=== PATIENT | male | born 1980 | race African-American/Black ===

== ENCOUNTER → 2025-03-26 10:09 | Outpatient (BNVA) | payer SELFPAY | DX: Z02.1 Encounter for pre-employment examination (principal); M54.9 Dorsalgia, unspecified ==

== ENCOUNTER 2025-07-08 11:38 | Emergency (ER) | payer SELFPAY ==
--- NOTE | ~2025-07-08 | XR_ITS ---
EXAMINATION: XR CHEST CLINICAL INFORMATION: fatigue COMPARISON: 03/05/2019. TECHNIQUE: 2 views of the chest were obtained. FINDINGS: The cardiac, hilar, and mediastinal contours are normal. The lungs are clear bilaterally. There is no pneumothorax or pleural effusion. There is no focal osseous or soft tissue abnormality. XR/XR chest 2V IMPRESSION: Normal chest. Electronically signed by: Carlito Salas MD 07/08/2025 12:59 PM MAL[facility]
[2025-07-08 12:15] VITALS: BP 192/100; PULSE 87; RESP 18; TEMP 36.6; O2SAT 96; BMI 31.4
--- NOTE | 2025-07-08 12:15 | ED_ITS ---
HPI - General Adult General Chief complaint: Recheck/Abnormal Lab/Rx Stated complaint: diabetic, high blood sugar. hands/ feet swollen Time Seen by Provider: 07/08/25 13:33 Source: patient and family Mode of arrival: ambulatory Limitations: no limitations History of Present Illness ED Provider: DR. Duncan HPI narrative: This is a 45-year-old male history of HTN, DM on insulin patient take glargine 40 units daily and lispro insulin as a sliding scale, patient presented for multiple complaints. Blood sugar has been running high for the past 2 weeks despite using his medication as instructed. Patient also been having swelling and edema in both hands and Feets. Patient also complaining of intermittent chest pain that is exertional and associated with shortness of breath that happened several times last week while he was at work that had to stop working and rest in order for the pain to go away. Patient admits to smoking cigarettes, marijuana, vape, admit also to recent use of cocaine 3 days ago. patient is unaware of his family history risk for coronary artery disease. Related Data Allergies Allergy/AdvReac Type Severity Reaction Status Date / Time No Known Allergies Allergy Verified 07/08/25 12:17 Review of Systems 2 Review of Systems: All other systems are reviewed and are negative Constitutional: Reports as per HPI and Reports no additional constitutional complaints Eyes: Reports as per HPI and Reports no additional eye complaints Reports system reviewed and no additional complaints, except as documented Cardiovascular: Reports as per HPI and Reports no additional cardiovascular complaints Respiratory: Reports as per HPI and Reports no additional respiratory complaints Gastrointestinal: Reports as per HPI and Reports no additional gastrointestinal complaints Genitourinary: Reports no additional female genitourinary complaints Musculoskeletal: Reports no additional musculoskeletal complaints Skin/Breast: Reports system reviewed and no additional complaints, except as docu Psychiatric: Reports no additional psychiatric complaints Endocrine: Reports no additional endocrine complaints Hematologic/Lymphatic: Reports no additional hematologic/lymphatic complaints Allergic/Immunologic: Reports no additional allergic/immunologic complaints Reports system reviewed and no additional complaints, except as documented and Reports Abnormal speech present [facility] Social History Social History Advance Directives: Yes Advance Directives Information Provided: No Advance Directives on File: No Physical Exam ED Vital Signs: Vital Signs - 24 hr 07/08/25 12:15 07/08/25 14:11 07/08/25 14:23 Temperature 97.9 F Pulse Rate 87 65 79 Respiratory Rate 18 16 Blood Pressure 192/100 H 165/101 H 161/101 H Pulse Oximetry 96 99 Oxygen Delivery Method Room Air Room Air BMI result Body Mass Index 31.4 Vital signs have been reviewed and appear to be correct. Blood pressure elevated. Heart rate normal. Respiratory rate normal. Temperature normal. Oxygen saturation normal. Appearance: Alert. Oriented X3. No acute distress. Head: Normal external exam. Normocephalic. Atraumatic. No Lez[place] signs noted. No raccoon eyes noted Eyes: PERRLA. EOMI. Conjunctiva and sclera normal. Eyelids normal. ENT: TM's Normal. Pharynx normal. Uvula midline. Moist mucous membranes. No trismus noted. No drooling noted. No muffled voice noted. Neck: Normal inspection. Neck supple. FROM. No adenopathy. Thyroid Normal. No meningeal signs. No neck mass noted. CVS: Normal heart rate and rhythm. Heart sound normal. No murmurs noted. Pulses normal throughout. Respiratory: No respiratory distress. Painless inspiration. Breath sounds normal. No wheezes/rales/rhonchi noted. Chest nontender. No accessory muscle usage noted or decreased air movement noted. Abdomen: Soft and nontender. Bowel sounds normal in all 4 quadrants. No distention noted. No organomegaly noted. No visible injury noted. Back: No CVA tenderness. Full range of motion noted. Skin: Skin warm and dry. Normal skin color. Normal skin turgor. No rashes/lesions/lacerations noted. Extremities: No lower extremity edema. Extremities exhibit normal range of motion. Extremities nontender. Neuro: Oriented X 3. Cranial nerve exam: II-XII are grossly intact No motor deficit. No sensory deficit. Reflexes normal. Course Course Course Narrative: Rapid medical examination performed in triage by Clementine Neely PA-C: Patient is a 45 year old assigned male at presenting to the emergency department with an elevated blood sugar and concerns of swelling / pain to his hands and feet. Patient states over the last 2 weeks his sugars have been elevated and he has been fatigued. Detailed physical exam and review of systems are deferred to the sheriffs detective. Labs ordered. Patient placed back in the waiting room pending room availability and results. Reevaluation(s) Reevaluation #1: chest pain, history of DM, HTN, elevated troponin, history of 1 time use cocaine last week, EKG is concern of T-wave inversion in the inferior lead with slight elevation of troponin. Will admit for concern of elevated troponin and cardiac workup. Patient was given aspirin, labetalol in the ED now has chest pain-free. 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 Ferrara to follow-up as an outpatient. Time: 17:06 Medications Administered Discontinued Medications Generic Name Dose Route Start Last Admin Trade Name Freq PRN Reason Stop Dose Admin Aspirin 325 mg 07/08/25 14:09 07/08/25 14:22 Aspirin 325 Mg Tablet PO 07/08/25 14:10 325 mg ONCE ONE Administration Sodium Chloride 1,000 mls @ 999 mls/hr 07/08/25 13:48 07/08/25 15:10 Ns IV 07/08/25 14:48 Infused .Q1H1M ONE Infusion Insulin Human Regular 10 unit 07/08/25 13:48 07/08/25 14:06 Insulin Regular, Human 100 Unit/Ml 10 Ml Vial IVPUSH 07/08/25 13:49 10 unit ONCE ONE Administration Metoprolol Tartrate 25 mg 07/08/25 14:09 07/08/25 14:23 Metoprolol Tartrate 25 Mg Tablet PO 07/08/25 14:10 25 mg ONCE ONE Administration Protocol Medical Decision Making Differential Diagnosis Differential Diagnoses: The differential diagnosis associated with the presentation includes ( ACS, pneumonia, pneumothorax, pleural effusion, DKA, hyperglycemia, electrolyte derangement, severe anemia) Admission/Observation Consideration of admission/observation: Escalation of care including admission/observation considered Consult Healthcare Provider Management of the patient was discussed with: Hospitalist ( Dr. Calzada) Lab Data MDM Lab Attestation statement: I reviewed the patient's lab results. 07/08/25 12:42 07/08/25 12:42 Labs: Lab Results 07/08/25 07/08/25 07/08/25 Range/Units 11:45 12:42 12:49 WBC 10.7 (4.8-10.8) X10*3/uL RBC 4.60 (4.60-5.80) X10*6/uL Hgb 13.4 L (14.0-18.0) g/dl Hct 38.9 L (42.0-52.0) % MCV 84.6 (80.0-98.0) fL MCH 29.1 (27.0-33.0) pg MCHC 34.4 (31.0-36.0) g/dl RDW 13.0 (11.0-16.0) % Plt Count 403 H (160-400) X10*3/uL MPV 8.6 L (9.4-12.4) fL Immature Gran % (Auto) 0.3 (0.0-0.4) % Neut % (Auto) 59.9 (45-73) % Lymph % (Auto) 30.0 (20-40) % Wayne % (Auto) 7.6 (2-11) % Eos % (Auto) 1.4 (0-4) % Baso % (Auto) 0.8 (0-2) % Lymph # (Auto) 3.2 (1.2-4.9) X10*3/uL Wayne # (Auto) 0.8 (0.1-1.2) X10*3/uL Eos # (Auto) 0.2 (0.0-0.4) X10*3/uL Baso # (Auto) 0.1 (0.0-0.2) X10*3/uL Abs Immat Gran (auto) 0.03 (0.00-0.03) X10*3/uL Absolute Neuts (auto) 6.4 (2.0-8.3) x10*3/uL Absolute Nucleated RBC 0.000 (0.0-0.012) X10*3/uL Nucleated RBC % (auto) 0.0 (0.0-0.2) /100WBC VBG pH 7.42 (7.32-7.43) VBG pCO2 44 mmHg VBG pO2 75 mmHg VBG HCO3 29 H (22-26) mmol/L VBG O2 Saturation 95.0 % VBG Base Excess 4.1 mmol/L Sodium 136 (135-145) mmol/L Potassium 3.7 (3.3-5.1) mmol/L Chloride 100 (96-108) mmol/L Carbon Dioxide 28 (22-29) mmol/L Anion Gap 12 (12-20) BUN 5 L (9-16) mg/dL Creatinine 0.71 (0.5-1.4) mg/dL Estim Creat Clear Calc 175.9 Estimated GFR > 60 POC Glucose 387 H* (60-115) mg/dL Random Glucose 449 H* (60-115) mg/dL Calcium 9.2 (8.4-10.2) mg/dL Magnesium 1.7 (1.6-2.6) mg/dL Total Bilirubin 0.3 (0.0-1.0) mg/dL AST 14 (5-37) U/L ALT 14 (0-40) U/L Alkaline Phosphatase 96 (39-117) U/L Troponin I High Sens 149.4 H* (<3.5-35.0) ng/L NT-Pro-B Natriuret Pep < 15.8 (<300) pg/mL Total Protein 7.5 (6.5-8.0) g/dL Albumin 4.2 (3.5-5.0) g/dL Beta-Hydroxybutyrate 0.09 (0.02-0.27) mmol/L COVID-19 (TARYN) Negative (Negative) COVID-19 Clin Com See Note Influenza Type A (LEXUS) Negative (Negative) Influenza Type B (LEXUS) Negative (Negative) Influenza A & B Note See Note 07/08/25 07/08/25 Range/Units 15:15 16:50 WBC (4.8-10.8) X10*3/uL RBC (4.60-5.80) X10*6/uL Hgb (14.0-18.0) g/dl Hct (42.0-52.0) % MCV (80.0-98.0) fL MCH (27.0-33.0) pg MCHC (31.0-36.0) g/dl RDW (11.0-16.0) % Plt Count (160-400) X10*3/uL MPV (9.4-12.4) fL Immature Gran % (Auto) (0.0-0.4) % Neut % (Auto) (45-73) % Lymph % (Auto) (20-40) % Wayne % (Auto) (2-11) % Eos % (Auto) (0-4) % Baso % (Auto) (0-2) % Lymph # (Auto) (1.2-4.9) X10*3/uL Wayne # (Auto) (0.1-1.2) X10*3/uL Eos # (Auto) (0.0-0.4) X10*3/uL Baso # (Auto) (0.0-0.2) X10*3/uL Abs Immat Gran (auto) (0.00-0.03) X10*3/uL Absolute Neuts (auto) (2.0-8.3) x10*3/uL Absolute Nucleated RBC (0.0-0.012) X10*3/uL Nucleated RBC % (auto) (0.0-0.2) /100WBC VBG pH (7.32-7.43) VBG pCO2 mmHg VBG pO2 mmHg VBG HCO3 (22-26) mmol/L VBG O2 Saturation % VBG Base Excess mmol/L Sodium (135-145) mmol/L Potassium (3.3-5.1) mmol/L Chloride (96-108) mmol/L Carbon Dioxide (22-29) mmol/L Anion Gap (12-20) BUN (9-16) mg/dL Creatinine (0.5-1.4) mg/dL Estim Creat Clear Calc Estimated GFR POC Glucose 218 H (60-115) mg/dL Random Glucose (60-115) mg/dL Calcium (8.4-10.2) mg/dL Magnesium (1.6-2.6) mg/dL Total Bilirubin (0.0-1.0) mg/dL AST (5-37) U/L ALT (0-40) U/L Alkaline Phosphatase (39-117) U/L Troponin I High Sens 139.6 H* (<3.5-35.0) ng/L NT-Pro-B Natriuret Pep (<300) pg/mL Total Protein (6.5-8.0) g/dL Albumin (3.5-5.0) g/dL Beta-Hydroxybutyrate (0.02-0.27) mmol/L COVID-19 (TARYN) (Negative) COVID-19 Clin Com Influenza Type A (LEXUS) (Negative) Influenza Type B (LEXUS) (Negative) Influenza A & B Note Independent Interpretation I performed an independent interpretation of an: Plain X-Ray ( chest: No acute intrathoracic pathology.) Radiology Impression Discussion of test interpretation with radiology: I have reviewed the radiologist's reading. Discharge Plan Discharge Clinical Impression: Uncontrolled diabetes mellitus with hyperglycemia, Chest pain, Elevated troponin Patient Disposition: Left Against Medical Advice Instructions: Chest Pain (ED), Diabetic Hyperglycemia (ED) Stand Alone Forms: Against Medical Advice Print Language: Turkish
--- NOTE | 2025-07-08 12:16 | ECG_ITS ---
Test Reason : fatigue Blood Pressure : */* mmHG Vent. Rate : 71 BPM Atrial Rate : 71 BPM P-R Int : 178 ms QRS Dur : 80 ms QT Int : 370 ms P-R-T Axes : 63 29 -32 degrees QTcB Int : 402 ms Normal sinus rhythm Septal infarct , age undetermined T wave abnormality, consider inferior ischemia Abnormal ECG When compared with ECG of 05-Mar-2019 15:06, Septal infarct is now Present Nonspecific T wave abnormality now evident in Anterior leads Referred By: Clementine Neely Electronically Signed By: Alex Ferrara
[2025-07-08 12:48] LABS: MANUAL DIFF FLAG NO
[2025-07-08 12:50] LABS: Hematocrit 38.9 % (42.0-52.0); Hemoglobin 13.4 g/dl (14.0-18.0); Imm Gran Abs Auto 0.03 X10*3/uL (0.00-0.03); Imm Gran Pct Auto 0.3 % (0.0-0.4); Lymphocytes Absolute Auto 3.2 X10*3/uL (1.2-4.9); Mean Corpuscular HGB Conc 34.4 g/dl (31.0-36.0); Mean Corpuscular Hemoglobin 29.1 pg (27.0-33.0); Mean Corpuscular Volume 84.6 fL (80.0-98.0); NRBC Abs Auto 0.000 X10*3/uL (0.0-0.012); NRBC Pct Auto 0.0 /100WBC (0.0-0.2); Platelet Count 403 X10*3/uL (160-400); Red Blood Count 4.60 X10*6/uL (4.60-5.80); White Blood Count 10.7 X10*3/uL (4.8-10.8)
[2025-07-08 12:52] LABS: Venous Blood Gas Refer to POC result
[2025-07-08 12:54] LABS: VBG HCO3 29 mmol/L (22-26); VBG O2 % Saturation 95.0 %
[2025-07-08 13:09] LABS: COVID-19 Test Negative (Negative); IDNOW Serial# 6674DD1D
[2025-07-08 13:15] LABS: Alanine Aminotransferase 14 U/L (0-40); Albumin Level 4.2 g/dL (3.5-5.0); Alkaline Phosphatase 96 U/L (39-117); Anion Gap 12 (12-20); Aspartate Amino Transferase 14 U/L (5-37); Blood Urea Nitrogen 5 mg/dL (9-16); Calcium 9.2 mg/dL (8.4-10.2); Carbon Dioxide 28 mmol/L (22-29); Chloride 100 mmol/L (96-108); Creatinine Clr Calc Pharmacy 175.9; Estimated Glomerular Filt Rate > 60; Magnesium 1.7 mg/dL (1.6-2.6); NT Pro B Type Natriuretic Pept < 15.8 pg/mL (<300); Potassium 3.7 mmol/L (3.3-5.1); Sodium 136 mmol/L (135-145); Total Protein 7.5 g/dL (6.5-8.0); Troponin-I High Sensitivity 149.4 ng/L (<3.5-35.0)
[2025-07-08 13:21] LABS: IDNOW Serial# 08D9AD1C; Influenza B2 Negative (Negative)
[2025-07-08 14:11] VITALS: BP 165/101; PULSE 65; RESP 16; O2SAT 99
[2025-07-08 14:23] VITALS: BP 161/101; PULSE 79
[2025-07-08 14:55] LABS: Glucose, Whole Blood 387 mg/dL (60-115)
[2025-07-08 16:09] LABS: Troponin-I High Sensitivity 139.6 ng/L (<3.5-35.0)
[2025-07-08 16:53] LABS: Glucose, Whole Blood 218 mg/dL (60-115)
--- NOTE | 2025-07-08 17:11 | PC.NURSE ---
Pt does not want to be admitted. MD Duncan at bedside, explained risks of leaving including worsening disease process or . Pt gave verbal understanding. Pt has appt with endocrinology on and will have a referral to cardiology placed. All questions and concerns addressed to patient's satisfaction.
[2025-07-08 17:19] VITALS: BP 154/95; PULSE 79; RESP 16; TEMP 36.6; O2SAT 99
--- NOTE | 2025-07-08 17:31 | PHA.MEDREC ---
Pharmacy Consult ? Medication Reconciliation Pharmacy has completed the medication reconciliation. Patient had a list of his medications on his phone. Patient confirmed Insulin Glargin 40 units daily last filled 11/08/2024 for 45 days, Insulin lispro 8-15 units TID per sliding scale last filled 10/10/24 for 30 days. Patient states he is still taking Potassium mEq 10 mg, however last filled 08/16/24 for 90 days, and Losartan Pot 100 mg, last filled 11/08/24 for 90 days. Patient had all his morning medications today.
== END 2025-07-08 17:38 | disposition left against medical advice (07) ==
PROVIDERS: Physician Assistant Medical; Emergency Provider Emergency Medicine
DX: E11.65 Type 2 diabetes mellitus with hyperglycemia (principal); R07.9 Chest pain, unspecified; R79.89 Other specified abnormal findings of blood chemistry; F14.90 Cocaine use, unspecified, uncomplicated; I10 Essential (primary) hypertension; Z72.0 Tobacco use; Z79.899 Other long term (current) drug therapy; Z53.29 Procedure and treatment not carried out because of patient's decision for other reasons
CPT/HCPCS: 36415; 71046; 80053; 82010; 82803; 82947; 83735; 83880; 84484; 85025; 87502; 87635; 93005; 96361; 96374; 99284; 99285

== ENCOUNTER → 2025-07-08 12:16 | Outpatient (BNV) | payer SELFPAY | PROVIDERS: Emergency Provider Emergency Medicine; Visit Provider Internal Medicine Cardiovascular Disease | DX: R94.31 Abnormal electrocardiogram [ECG] [EKG] (principal); R53.83 Other fatigue | CPT/HCPCS: 93010 ==

== ENCOUNTER → 2025-07-08 12:16 | Outpatient (BNV) | payer SELFPAY | PROVIDERS: Emergency Provider Emergency Medicine; Visit Provider Radiology Diagnostic Radiology | DX: R53.83 Other fatigue (principal) | CPT/HCPCS: 71046 ==

== ENCOUNTER 2025-07-23 08:14 | Emergency (ER) | payer SELFPAY ==
[2025-07-23 08:16] VITALS: BP 197/116; PULSE 89; RESP 18; TEMP 36.6; O2SAT 98; BMI 31.4
--- NOTE | 2025-07-23 08:41 | ED_ITS ---
HPI - General Adult General Chief complaint: General Medical Stated complaint: High Blood Pressure Time Seen by Provider: 07/23/25 08:22 Source: patient, RN notes reviewed and old records reviewed Mode of arrival: ambulatory Limitations: no limitations History of Present Illness ED Provider: Francesca CALI narrative: 45-year-old patient with a known history of diabetes mellitus, HTN who presents after his continuous glucose monitor read ?HIGH? (>400?mg/dL) at approximately 04:30 this morning. He reports that he ran out of his insulin pens last night after taking his usual nighttime dose (~40?units; lantus) and also depleted the last of lispro insulin earlier today in an attempt to lower his blood sugar. Since awakening he notes a [id number] sensation in both feet and hands. Additional symptoms include: bilateral blurred vision with difficulty focusing (requires removal of glasses to read phone), intermittent sharp chest discomfort under the ribs, morning nausea with episodes of vomiting, sweating spells, and brief headaches lasting 10?15?minutes. He denies consistent shortness of breath, dizziness, or light-headedness. He has also been off his blood-pressure medication for approximately one week. Patient reports a recent ED visit for hyperglycemia one to two weeks ago, during which he declined to stay for treatment, stating he would return if he felt worse. MD complaint: hyperglycemia Onset (ago): day(s) Related Data Home Medications ?Medication ?Instructions ?Recorded ?Confirmed amlodipine 5 mg tablet 5 mg PO DAILY 07/08/2507/08 insulin glargine 100 unit/mL (3 40 unit subcut BEDTIME 07/08/25 07/08/25 mL) subcutaneous pen (Lantus Solostar U-100 Insulin) insulin lispro 100 unit/mL See Protocol subcut TID 11/2707/08/25 subcutaneous pen losartan 100 mg tablet 100 mg PO DAILY 07/08/2511/27 potassium chloride 10 mEq 10 meq PO DAILY 07/08/2511/27 tablet,extended release Previous Rx's ?Medication ?Instructions ?Recorded amlodipine 5 mg tablet 5 mg PO DAILY #30 tabs 07/23 insulin glargine 100 unit/mL (3 35 unit (0.35 mL) subc ut QPM #15 mL 11/18/25 mL) subcutaneous pen (Lantus Solostar U-100 Insulin) insulin lispro 100 unit/mL 1 sliding scale dose subcut 07/23/25 subcutaneous pen (Humalog SylviaPen USEASDIRECTD #15 mL (U-100) Insulin) losartan 100 mg tablet 100 mg PO DAILY #30 tabs Allergies Allergy/AdvReac Type Severity Reaction Status Date / Time No Known Allergies Allergy Verified 07/23/25 08:20 Review of Systems 2 Review of Systems: As per HPI Yes all other systems are reviewed and are negative Constitutional: Constitutional: Reports as per HPI [facility] Social History Social History Advance Directives: No Advance Directives Information Provided: Yes Do you have a plan to hurt others: No Plan Physical Exam ED Vital Signs: Vital Signs - 24 hr 07/23/25 08:16 07/23/25 10:00 07/23/25 10:19 Temperature 97.8 F Pulse Rate 89 68 Respiratory Rate 18 18 Blood Pressure 197/116 H 170/104 H 170/104 H Pulse Oximetry 98 96 Oxygen Delivery Method Room Air BMI result Body Mass Index 31.4 Vital signs have been reviewed and appear to be correct. Blood pressure hypertensive. Heart rate normal. Respiratory rate normal. Temperature normal. Oxygen saturation normal. Const General: cooperative, healthy appearing and no acute distress Orientation/consciousness: oriented to person, oriented to place, oriented to time and patient oriented x3 Limitations: no limitations HENMT Head: Yes normocephalic and Yes atraumatic Ears: external ears normal General nose exam: Normal external nose present Face and sinus: Yes face symmetric Mouth: oropharynx normal and moist mucous membranes Throat: Yes uvula midline Eyes Pupils: Equal, round and reactive pupils present Neck Neck: Yes normal visual inspection and Yes supple Resp Effort & Inspection: normal respiratory effort and able to speak in complete sentences Auscultation: clear to auscultation bilaterally Cardio Rate: regular rate Rhythm: regular rhythm Heart sounds: S1 normal heart sound present and S2 normal heart sound present GI Palpation (GI): Soft to palpation and nontender Auscultation: normoactive bowel sounds General: Yes no CVA tenderness Back/Spine/Pelvis Back: no CVA tenderness Skin General skin exam: elasticity normal and turgor normal Neuro General: oriented to person, oriented to place, oriented to time, patient oriented x3, moves all extremities, no focal motor deficits and CN's II-XI intact bilaterally Cranial nerves: Yes Equal, round and reactive pupils present Cognition (Neuro): normal cognition Extrem General: Yes full ROM, Yes no pedal edema and Yes no calf tenderness Psych Mental Status: mental status grossly normal Affect: normal affect Thought process: Normal thought process present Medications Administered Discontinued Medications Generic Name Dose Route Start Last Admin Trade Name Sheree PRN Reason Stop Dose Admin Amlodipine Besylate 5 mg 07/23/25 09:17 07/23/25 10:19 Amlodipine Besylate 5 Mg Tablet PO 07/23/25 09:18 5 mg ONCE ONE Administration Protocol Lactated Ringer's 1,000 mls @ 999 mls/hr 07/23/25 09:45 07/23/25 10:19 Lr IV 07/23/25 10:45 999 mls/hr .Q1H1M NADINE Administration Insulin Human Lispro 5 unit 07/23/25 10:51 07/23/25 11:21 Insulin Lispro 100 Unit/Ml 3 Ml Vial SUBCUT 07/23/25 10:52 5 unit ONCE ONE Administration Losartan Potassium 100 mg 07/23/25 09:17 07/23/25 10:19 Losartan Potassium 50 Mg Tablet PO 07/23/25 09:18 100 mg ONCE ONE Administration Protocol Medical Decision Making Medical Decision Making MDM Narrative: 45-year-old patient with a known history of diabetes mellitus, HTN who presents after his continuous glucose monitor read ?HIGH? (>400?mg/dL) at approximately 04:30 this morning. On exam patient is awake, A+Ox3, hypertensive, VS otherwise WNL, afebrile, normal neurological exam without focal deficits, physical exam findings as above. Given reported symptoms and physical exam findings, initial differential includes but is not limited to DKA, HHS, hyperglycemia, other electrolyte abnormality, hypertension, diabetic neuropathy. Labs notable for chronically elevated troponin, repeat downtrending, not acidotic, normal beta- hydroxybutyrate. EKG shows sinus bradycardia. Do not suspect DKA/[place] at this time. Feel patient is stable for discharge home, will send prescriptions for insulin, amlodipine, and losartan. Return precautions discussed. Advised close follow up with PCP. Patient verbalized understanding of and agreement with plan. Differential Diagnosis Differential Diagnoses: The differential diagnosis associated with the presentation includes as [facility] Admission/Observation Consideration of admission/observation: Escalation of care including admission/observation considered Patient would have been admitted to the hospital and transferred to appropriate facility had their clinical presentation warranted hospital admission. Lab Data [facility] Lab Attestation statement: I reviewed the patient's lab results. as per [facility] 07/23/25 09:46 07/23/25 09:46 Labs: Lab Results 07/23/25 07/23/25 07/23/25 Range/Units 09:46 09:52 11:13 WBC 12.2 H (4.8-10.8) X10*3/uL RBC 4.69 (4.60-5.80) X10*6/uL Hgb 13.9 L (14.0-18.0) g/dl Hct 40.4 L (42.0-52.0) % MCV 86.1 (80.0-98.0) fL MCH 29.6 (27.0-33.0) pg MCHC 34.4 (31.0-36.0) g/dl RDW 13.2 (11.0-16.0) % Plt Count 430 H (160-400) X10*3/uL MPV 8.7 L (9.4-12.4) fL Immature Gran % (Auto) 0.3 (0.0-0.4) % Neut % (Auto) 63.6 (45-73) % Lymph % (Auto) 25.2 (20-40) % [place] % (Auto) 8.7 (2-11) % Eos % (Auto) 1.4 (0-4) % Baso % (Auto) 0.8 (0-2) % Lymph # (Auto) 3.1 (1.2-4.9) X10*3/uL [place] # (Auto) 1.1 (0.1-1.2) X10*3/uL Eos # (Auto) 0.2 (0.0-0.4) X10*3/uL Baso # (Auto) 0.1 (0.0-0.2) X10*3/uL Abs Immat Gran (auto) 0.04 H (0.00-0.03) X10*3/uL Absolute Neuts (auto) 7.8 (2.0-8.3) x10*3/uL Absolute Nucleated RBC 0.000 (0.0-0.012) X10*3/uL Nucleated RBC % (auto) 0.0 (0.0-0.2) /100WBC VBG pH 7.40 (7.32-7.43) VBG pCO2 48 mmHg VBG pO2 39 mmHg VBG HCO3 30 H (22-26) mmol/L VBG O2 Saturation 61.0 % VBG Base Excess 4.9 mmol/L Sodium 136 (135-145) mmol/L Potassium 4.2 (3.3-5.1) mmol/L Chloride 98 (96-108) mmol/L Carbon Dioxide 28 (22-29) mmol/L Anion Gap 14 (12-20) BUN 6 L (9-16) mg/dL Creatinine 0.67 (0.5-1.4) mg/dL Estim Creat Clear Calc 186.5 Estimated GFR > 60 Random Glucose 420 H* (60-115) mg/dL Calcium 9.4 (8.4-10.2) mg/dL Magnesium 1.8 (1.6-2.6) mg/dL Total Bilirubin 0.3 (0.0-1.0) mg/dL AST 14 (5-37) U/L ALT 12 (0-40) U/L Alkaline Phosphatase 85 (39-117) U/L Troponin I High Sens 115.8 H* 97.7 H (<3.5-35.0) ng/L Total Protein 7.7 (6.5-8.0) g/dL Albumin 4.3 (3.5-5.0) g/dL Beta-Hydroxybutyrate 0.09 (0.02-0.27) mmol/L Urine Color Yellow Urine Appearance Clear Urine pH 5.5 (5.0-9.0) Ur Specific [place] >= 1.030 H (1.005-1.025) Urine Protein Negative (Neg-Trace) mg/dL Urine Glucose (UA) >=1000 H (Negative) mg/dL Urine Ketones Negative (Negative) mg/dL Urine Blood Negative (Negative) Urine Nitrite Negative (Negative) Ur Leukocyte Esterase Negative (Negative) External Record Review External record reviewed: Inpatient record, Office record and Outpatient record Discharge Plan Discharge Clinical Impression: Hyperglycemia, Hypertension Patient Disposition: Home, Self-Care Instructions: Hypertension (ED), Diabetic Hyperglycemia (ED), Hypertension and Diabetes (ED) Additional Instructions: You were evaluated in the emergency department today for elevated glucose level and high blood pressure. Your labs are reassuring and you do not appear to be in DKA. We have sent prescriptions to the pharmacy for your insulin and blood pressure medications. It is very important that you follow up with your primary care provider. Return to the emergency department if you have elevated glucose readings, increased thirst, increased urination, vomiting, or any other new or concerning symptoms. Prescriptions: New amlodipine 5 mg tablet 5 mg PO DAILY Qty: 30 0RF losartan 100 mg tablet 100 mg PO DAILY Qty: 30 0RF insulin lispro [Humalog KwikPen Insulin] 100 unit/mL insulin pen 1 sliding scale dose subcut USEASDIRECTD Qty: 15 0RF insulin glargine [Lantus Solostar U-100 Insulin] 100 unit/mL (3 mL) insulin pen 35 unit subcut QPM Qty: 15 0RF No Action potassium chloride 10 mEq tablet extended release 10 meq PO DAILY amlodipine 5 mg tablet 5 mg PO DAILY losartan 100 mg tablet 100 mg PO DAILY insulin lispro 100 unit/mL insulin pen See Protocol SUBCUT TID Protocol: Insulin Correction Scale Less than or equal to 110 ---- Give (units): 0 111 to 150 Give (units): 0 151 to 200 Give (units): 2 201 to 250 Give (units): 4 251 to 300 Give (units): 6 301 to 350 Give (units): 8 Greater than 350 Give (units): 10 Call MD if Blood Glucose > : 350 Rx Instructions: 8-15 units insulin glargine [Lantus Solostar U-100 Insulin] 100 unit/mL (3 mL) insulin pen 40 unit subcut BEDTIME Stand Alone Forms: Work/School Release Print Language: Scottish
--- NOTE | 2025-07-23 09:16 | ECG_ITS ---
Test Reason : CP Blood Pressure : */* mmHG Vent. Rate : 59 BPM Atrial Rate : 59 BPM P-R Int : 188 ms QRS Dur : 92 ms QT Int : 406 ms P-R-T Axes : 45 17 -34 degrees QTcB Int : 401 ms Sinus bradycardia T wave abnormality, consider inferolateral ischemia Abnormal ECG When compared with ECG of 08-Jul-2025 12:36, Criteria for Septal infarct are no longer Present Inverted T waves have replaced nonspecific T wave abnormality in Lateral leads Referred By: Marti Ma Electronically Signed By: ZULAY FONTENOT
[2025-07-23 09:54] LABS: MANUAL DIFF FLAG NO
[2025-07-23 09:54] LABS: Venous Blood Gas Refer to POC result
[2025-07-23 09:55] LABS: VBG HCO3 30 mmol/L (22-26); VBG O2 % Saturation 61.0 %
[2025-07-23 09:58] LABS: Hematocrit 40.4 % (42.0-52.0); Hemoglobin 13.9 g/dl (14.0-18.0); Imm Gran Abs Auto 0.04 X10*3/uL (0.00-0.03); Imm Gran Pct Auto 0.3 % (0.0-0.4); Lymphocytes Absolute Auto 3.1 X10*3/uL (1.2-4.9); Mean Corpuscular HGB Conc 34.4 g/dl (31.0-36.0); Mean Corpuscular Hemoglobin 29.6 pg (27.0-33.0); Mean Corpuscular Volume 86.1 fL (80.0-98.0); NRBC Abs Auto 0.000 X10*3/uL (0.0-0.012); NRBC Pct Auto 0.0 /100WBC (0.0-0.2); Platelet Count 430 X10*3/uL (160-400); Red Blood Count 4.69 X10*6/uL (4.60-5.80); White Blood Count 12.2 X10*3/uL (4.8-10.8)
[2025-07-23 10:00] VITALS: BP 170/104; PULSE 68; RESP 18; O2SAT 96
[2025-07-23 10:14] LABS: Alanine Aminotransferase 12 U/L (0-40); Albumin Level 4.3 g/dL (3.5-5.0); Alkaline Phosphatase 85 U/L (39-117); Anion Gap 14 (12-20); Aspartate Amino Transferase 14 U/L (5-37); Blood Urea Nitrogen 6 mg/dL (9-16); Calcium 9.4 mg/dL (8.4-10.2); Carbon Dioxide 28 mmol/L (22-29); Chloride 98 mmol/L (96-108); Creatinine Clr Calc Pharmacy 186.5; Estimated Glomerular Filt Rate > 60; Magnesium 1.8 mg/dL (1.6-2.6); Potassium 4.2 mmol/L (3.3-5.1); Sodium 136 mmol/L (135-145); Total Protein 7.7 g/dL (6.5-8.0)
[2025-07-23 10:19] VITALS: BP 170/104
[2025-07-23] MEDS: Lactated Ringers 1,000 ML 999 ML IV (10:19)
[2025-07-23 10:20] LABS: Troponin-I High Sensitivity 115.8 ng/L (<3.5-35.0)
[2025-07-23 11:23] LABS: Appearance Urine Clear; Glucose Urine UA >=1000 mg/dL (Negative); PH 5.5 (5.0-9.0); Specific Gravity - Urine >= 1.030 (1.005-1.025); UMIC TRIGGER UACC YES
[2025-07-23 11:39] LABS: Troponin-I High Sensitivity 97.7 ng/L (<3.5-35.0)
[2025-07-23 12:23] LABS: Glucose, Whole Blood 277 mg/dL (60-115)
[2025-07-23 12:55] VITALS: BP 170/104; PULSE 62; RESP 16; TEMP 36.6; O2SAT 96
--- OUTSIDE RECORDS SUMMARY | 2025-07-23 15:20 | XMS_ITS | Clinical Summary ---
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 Manage by pathology laboratory aide at [facility] Active syringe-needle, insulin,0.5 mL (BD INSULIN SYRINGE MISC) Manage by pathology laboratory aide at [facility] Active insulin lispro 100 unit/mL injection Inject 8-15 Units under the skin 3 (three) times a day before meals. Manage by pathology laboratory aide at [facility] Active potassium chloride (KLOR-CON) 10 mEq CR tablet TAKE 1 TABLET BY MOUTH EVERY DAY 90 tablet 1 08/16/20 24 Active omeprazole (PriLOSEC) [address] capsule Take 1 capsule (40 mg total) by mouth 1 (one) time each day. Do not crush or chew. 90 capsule 1 11/09/19 25 Active losartan (COZAAR) 100 mg tabletIndicatio ns:Uncontrolled hypertension Take 1 tablet (100 mg total) by mouth 1 (one) time each day. 90 each 1 11/09/19 25 Active insulin glargine-yfgn (Semglee,insuli n glargine-yfgn,) 100 unit/mL injection Inject 40 Units under the skin at bedtime. 20 mL 03/27/20 25 Active amLODIPine (NORVASC) 5 mg tabletIndicatio ns:Uncontrolled hypertension Take 1 tablet (5 mg total) by mouth 1 (one) time each day. 30 each 07/09/20 25 Active amLODIPine (NORVASC) 5 mg tabletIndicatio ns:Uncontrolled hypertension Take 1 tablet (5 mg total) by mouth 1 (one) time each day. 90 each 1 11/09/19 25 025 Discontin ued(Reord er) Active Problems Problem Noted Date Diagnosed Date Newly diagnosed diabetes ([facility] V24, [facility] V 28) 02/13/2024 Assessment & Plan (11/08/2024 12:52 PM EST): Patient is to repeat A1c today. BMP ordered to evaluate renal function and electrolytes, along with microalbumin levels. Patient is to maintain a low carb diet to optimize blood sugar levels (avoid sweet drinks/snacks, excess bread, pasta intake and replace red meat with chicken and fish and increase salad intake). Attempt exercise daily or at least 3 times a week for 30 min. Complications associated with uncontrolled diabetes includes, but are not limited to an increased risk of cardiovascular disease, retinopathy, neuropathy, renal disease, increased risk of infections with open wounds and amputations. Orders: Hemoglobin A1c; Future Basic metabolic panel; Future Microalbumin creatinine urine ratio; Future Mixed hyperlipidemia 10/11/2020 Low HDL (under 40) 07/15/2020 Hypertriglyceridemia 07/17/2013 Assessment & Plan (11/08/2024 12:52 PM EST): Elevation in your triglycerides can contribute to causing other complications such as Fatty Liver or Pancreatis. A normal Triglycerides is less than 150. Please decrease carbs and fatty foods, increase exercise and some modest weight loss can be helpful. Orders: Hemoglobin A1c; Future Basic metabolic panel; Future Microalbumin creatinine urine ratio; Future HTN (hypertension) 07/09/2013 Obese 07/09/2013 Immunizations Immunization Administration Dates Next Due Influenza trivalent, with pr eservative (Fluzone; Afluria) 6mo and older 07/09/2013 Tdap Tetanus diptheria acell ular pertussis (Boostrix; Adacel) 7yo and older 07/24/2013 Surgical History Surgery Date Site/Laterality Comments OTHER SURGICAL HISTORY 2017 PROCEDURE: ---- OTHER ----; COMMENT: ?surgery for bloodclot in left groin LEG SURGERY 2016 Left PROCEDURE: HISTORICAL LEG SURGERY; COMMENT: 02/28. 03/01 and 03/04/2016: debridement of L medial thigh necrotizing soft tissue infection. Medical History Medical History Date Comments Unspecified essential hypertension DX:Unspecified essential hypertension Tobacco abuse 07/09/2013 DX:Tobacco abuse Prediabetes 07/08/2020 DX:Prediabetes History of tear of ACL (ante rior cruciate ligament) 07/12/2013 DX:History of tear of ACL (a nterior cruciate ligament); COMMENT: Left knee History of necrotizing fasciitis 08/11/2020 DX:History of necrotizing fasciitis; COMMENT: L medial thigh 2015 Family History Medical History Relation Name Comments No Known Problems Daughter Hypertension Father Hypertension Mother Stroke Mother Blindness Neg Hx Cataracts Neg Hx Glaucoma Neg Hx Macular degeneration Neg Hx Strabismus Neg Hx Relation Name Status Comments Brother 1 1/2 bro Alive Brother 2 1/2 bro Alive Brother 3 Alive Brother 4 Alive Daughter Alive Father Alive Mother Alive cva late 30's, htn Sister 1 Alive Sister 2 Alive Sister 3 1/2 sis Alive Sister 4 1/2 sis Alive Sister 5 1/2 sis Alive Sister 6 1/2 sis Alive Social History Tobacco Use Types Packs/Day Years Used Date Smoking Tobacco: Some Days Smokeless Tobacco: Never Alcohol Use Standard Drinks/Week Comments Yes 0 (1 standard drink = 0.6 oz pur e alcohol) Sex and Gender Information Value Date Recorded Sex Assigned at Not on file Legal Sex Male 12:35 PM EST Gender Identity Not on file Sexual Orientation Not on file Obstetrics History Last Filed Vital Signs Vital Sign Reading Time Taken Comments Blood Pressure 148/92 11/08/2024 12:30 PM EST Pulse 87 11/08/2024 11:57 AM EST Temperature 36.1 C (96.9 F) 11/08/2024 11:57 AM EST Respiratory Rate 18 11/08/2024 11:57 AM EST Oxygen Saturation 98% 11/08/2024 11:57 AM EST Inhaled Oxygen Concentration - - Weight 126 kg (277 lb 3.2 oz) 11/08/2024 11:57 A M EST Height 188 cm (6' 2 ) 11/08/2024 11:57 AM EST Body Mass Index 35.59 11/08/2024 11:57 AM EST Plan of Treatment Health Maintenance Due Date Last Done Comments Pneumococcal Vaccine: Pediatrics (0 to 5 Years) and At-Risk Patients (6 to 49 Years) (1 of 2 - PCV) 2000 HPV Vaccines (1 - 3-dose SCDM series) 2008 Social Influencers of Health Screening 08/13/2022 DTaP,Tdap,and Td Vaccines (2 - Td or Tdap) 07/24/2023 07/24/2013 Depression Screening 09/05/2024 Diabetes: Annual Foot Exam 02/22/2025 02/23/2024 Diabetes: Annual Retina Eye Exam 03/19/2025 03/19/2024 COVID-19 Vaccine ( - season) 2025 12/12/2020 Influenza Vaccine (#1) 2025 07/09/2013 Diabetes: Blood Sugar Control Test (HGBA1C) 05/11/2025 11/08/2024, 05/31/2024, 05/31/2024, Additional history exists Diabetes: Annual Urine Albumin-Creatinine Ratio (uACR) 11/08/2025 11/08/2024, 05/31/2024 Diabetes: Annual GFR (Glomerular Filtration Rate) 11/08/2025 11/08/2024, 02/13/2024, 02/13/2024 Hypertension/CHF/CAD Annual BMP Blood Test 11/08/2025 11/08/2024, 02/13/2024, 02/13/2024 Cholesterol Screening (Lipid Panel) 02/12/2029 02/13/2024, 02/13/2024 RSV Immunization Adult Patients (1 - 1-dose 75+ series) 2056 HIV Screening Completed 05/31/2024, 05/31/2024 Hepatitis C Screening Completed 05/31/2024 HIB Vaccines Aged Out No longer eligi ble based on patient's age to complete this topic Hepatitis A Vaccines Aged Out No long er eligible based on patient's age to complete this topic Hepatitis B Vaccines Discontinued IPV Vaccines Aged Out No longer eligi ble based on patient's age to complete this topic MMR Vaccines Aged Out No longer eligi ble based on patient's age to complete this topic Meningococcal ACWY Vaccine Aged Out N o longer eligible based on patient's age to complete this topic Meningococcal B Vaccine Aged Out No l onger eligible based on patient's age to complete this topic RSV Immunization Patients Under 20 months Aged Out No longer eligible based on patient's age to complete this topic Varicella Vaccines Aged Out No longer eligible based on patient's age to complete this topic Procedures Procedure Name Priority Date/Time Associated Diagnosis Comments MICROALBUMIN CREATININE URINE RATIO Routine 11/08/2024 12:47 PM EST Newly diagnosed diabetes ([facility] V24, [facility] V28) Hypertriglyceridemi a BASIC METABOLIC PANEL Routine 11/08/2024 12:47 PM EST Newly diagnosed diabetes ([facility], [facility] V28) Hypertriglyceridemi a HEMOGLOBIN A1C Routine 11/08/2024 12:47 PM EST Newly diagnosed diabetes ([facility] V24, [facility] V28) Hypertriglyceridemi a HEPATITIS C SCREENING Routine 05/31/2024 HIV SCREENING Routine 05/31/2024 DIABETES EYE EXAM Routine 03/19/2024 DIABETES FOOT EXAM Routine 02/23/2024 LIPID PANEL Routine 02/13/2024 from Last 3 Months or Most Recently Relevant to Health Maintenance Results * (ABNORMAL) Microalbumin creatinine urine ratio (11/08/2024 12:47 PM EST) Creatinine, Urine 198.0 mg/dL LAB CHEMISTRY METHOD 11/08/2024 2:[address] [facility] Microalb, Ur 78.5(H) 0.0 - 29.0 mg/L LAB CHEMISTRY METHOD 11/08/2024 2:[address] [facility] Microalb/Crea t Ratio 40(H) <30 mg/g creat LAB CHEMISTRY METHOD 11/08/2024 2:[address] [facility] Urine Urine specimen obtained by clean catch procedure / Unknown Non-blood Collection / Unknown 11/08/2024 12:47 PM EST 11/08/2024 12:47 PM EST Prachi Rose BILINGUAL SALES CONSULTANT LAB URINE ORDERABLES Final R esult Performing Organization Address City/[facility]/ZIP Co de Phone Number [facility] [address] [place] [address], [place] [phone] * (ABNORMAL) Hemoglobin A1c (11/08/2024 12:47 PM EST) Pathologist [facility] Hemoglobin A1C 12.3(H) <6.5 % LAB CHEMISTRY METHOD 11/08/2024 9:[address] [facility] Mean Bld Glu Estim. 306 mg/dL LAB CHEMISTRY METHOD 11/08/2024 9:[address] [facility] Blood Venous blood specimen / Unknown Venipuncture / Unknown 11/08/2024 12:47 PM EST 11/08/2024 12:47 PM EST Prachi Rose BILINGUAL SALES CONSULTANT LAB BLOOD ORDERABLES Final R esult Performing Organization Address City/[facility]/ZIP Co de Phone Number [facility] [address] [place] [address], [place] [phone] * (ABNORMAL) Basic metabolic panel (11/08/2024 12:47 PM EST) Pathologist [facility] Sodium 134 133 - 145 mmol/L LAB CHEMISTRY METHOD 11/08/2024 4:[address] [facility] Potassium 3.7 3.5 - 5.5 mmol/L LAB CHEMISTRY METHOD 11/08/2024 4:[address] [facility] Chloride 98 96 - 110 mmol/L LAB CHEMISTRY METHOD 11/08/2024 4:[address] [facility] CO2 30 21 - 32 mmol/L LAB CHEMISTRY METHOD 11/08/2024 4:[address] [facility] Anion Gap 6 3 - 11 LAB CHEMISTRY METHOD 11/08/2024 4:[address] [facility] Glucose 284(H) 70 - 100 mg/dL LAB CHEMISTRY METHOD 11/08/2024 4:[address] [facility] BUN 6 5 - 25 mg/dL LAB CHEMISTRY METHOD 11/08/2024 4:[address] [facility] Creatinine 0.77 0.70 - 1.30 mg/dL LAB CHEMISTRY METHOD 11/08/2024 4:[address] [facility] eGFR 114 >=60 mL/min/1. 73m2 LAB CHEMISTRY METHOD 11/08/2024 4:[address] [facility] Comment:Calculation based on the Chronic Kidney Disease Epidemiology Collaboration (CKD-EPI) equation refit without adjustment for race. BUN/Creatinine Ratio 7.8 LAB CHEMISTRY METHOD 11/08/2024 4:[address] [facility] Calcium 9.9 8.5 - 10.5 mg/dL LAB CHEMISTRY METHOD 11/08/2024 4:[address] [facility] Blood Venous blood specimen / Unknown Venipuncture / Unknown 11/08/2024 12:47 PM EST 11/08/2024 12:47 PM EST Prachi Rose BILINGUAL SALES CONSULTANT LAB BLOOD ORDERABLES Final R esult [facility] [address] [place] [address], * HIV Screening (05/31/2024) HIV Screening abstracted Historical Provider HEALTH MAINTENANCE Final Result * Hepatitis C Screening (05/31/2024) Pathologist [facility] Hepatitis C Screening abstracted Historical Provider HEALTH MAINTENANCE Final Result * Diabetes Eye Exam (03/19/2024) Diabetes: Annual Retina Eye Exam abstracted Historical Provider HEALTH MAINTENANCE Final Result * Diabetes Foot Exam (02/23/2024) Diabetes: Annual Foot Exam abstracted Historical Provider HEALTH MAINTENANCE Final Result * (ABNORMAL) Lipid panel (02/13/2024) LDL/HDL Ratio 4 0 - 4 Triglycerides 123 0 - 150 mg/dL Cholesterol 151 0 - 200 mg/dL HDL 38(A) >=40 mg/dL LDL Cholesterol 89 0 - 100 mg/dL Blood Venous blood specimen / Unknown Historical Provider LAB BLOOD ORDERABLES Madeline l Result from Last 3 Months or Most Recently Relevant to Health Maintenance Care Teams Oil Field Equipment Mechanic Supervisor Relationship Specialty Start Date End Date Cori Hart MD [address] [place] [id number] PCP - General Internal Medicine 07/05/13
--- OUTSIDE RECORDS SUMMARY | 2025-07-23 15:21 | XMS_ITS | Encounter Summary ---
Author Organization [facility] Address [address] [place] [phone] Phone Care Team Providers Care Manager Apple Name Role Phone Cori Hart MD Primary Care Provider [phone] Encounter Details Date Type Department Care Team (Late st Contact Info) Description 07/18/2024 Procedure Pass OR Admitting Dept - Virtual Department [address] [place] [id number] Social History Tobacco Use Types Packs/Day Years Used Date Smoking Tobacco: Never Assessed Education Answer Date Recorded Are you interested in more education? Not on xuan e 06/25/2024 Are you concerned about learning? Not on file 06/25/2024 No 06/25/2024 No 06/25/2024 Digital Access Answer Date Recorded No 06/25/2024 No 06/25/2024 Reliable internet access at home? Not on file 06/25/2024 Device with a working camera? Not on file Sex and Gender Information Value Date Recorded Sex Assigned at Not on file Legal Sex Male 11:22 AM EDT Gender Identity Not on file Sexual Orientation Not on file documented as of this encounter Plan of Treatment Not on file documented as of this encounter Visit Diagnoses Not on filedocumented in this encounter Care Teams Manager Apple Relationship Specialty Start Date End Date Cori Hart MD [address] [place] [address] PCP - General Internal Medicine 06/25/24 documented as of this encounter Additional Source Comments The information contained in this document represents components of the legal health record. It is not the complete legal health record.[facility]
--- OUTSIDE RECORDS SUMMARY | 2025-07-23 15:21 | XMS_ITS | Clinical Summary ---
Author Organization [facility] Address [address] [place] [phone] Phone Care Team Providers Care Chemist Water Purification Name Role Phone Cori Hart MD Primary Care Provider [phone] Social History Tobacco Use Types Packs/Day Years [...] on file Sexual Orientation Not on file Plan of Treatment Not on file Medical Devices Not on file Insurance [facility] [address] [place], [place] [address] [facility] [place] [address] [place] [address] [facility] [employer] [facility] [employer] Care Teams Chemist Water Purification Relationship Specialty Start Date End Date Cori Hart MD [address] [place] [address] PCP - General Internal Medicine 06/25/24 Additional Source Comments The information contained in this document represents components of the legal health record. It is not the complete legal health record.[facility]
== END 2025-07-23 13:02 | disposition home or self-care (01) ==
PROVIDERS: Registered Nurse Emergency; Emergency Provider Emergency Medicine
DX: E11.65 Type 2 diabetes mellitus with hyperglycemia (principal); I10 Essential (primary) hypertension; Z79.4 Long term (current) use of insulin
CPT/HCPCS: 36415; 80053; 81001; 82010; 82803; 82947; 83735; 84484; 85025; 93005; 96360; 96361; 99284; J7120

== ENCOUNTER → 2025-07-23 09:16 | Outpatient (BNV) | payer SELFPAY | PROVIDERS: Emergency Provider Emergency Medicine; Visit Provider Internal Medicine | DX: R00.1 Bradycardia, unspecified (principal) | CPT/HCPCS: 93010 ==